=== PATIENT | female | born 1990 | race Caucasian/White ===

== ENCOUNTER 2024-09-01 21:22 | Inpatient (IN) | payer OTHER, SELFPAY ==
[2024-09-01] VITALS (9 sets, daily range): BP systolic 127–153; BP diastolic 85–95; PULSE 70–112; RESP 18; TEMP 37.3; O2SAT 76–100; BMI 30.7
[2024-09-01 21:57] LABS: Basophils Absolute Auto 0.1 K/mm3 (0.0-0.1); Basophils Percent Auto 0.4 % (0.2-1.2); Eosinophils Absolute Auto 0.3 K/mm3 (0-0.3); Eosinophils Percent Auto 2.8 % (0-4.4); Hematocrit 37.7 % (37.0-47.0); Hemoglobin 12.6 g/dL (12.0-15.0); Immature Granulocyte Absolute 0.25 K/mm3 (0.00-0.031); Immature Granulocyte Percent A 2.1 % (0-0.5); Lymphocytes Absolute Auto 1.74 K/mm3 (0.9-3.2); Lymphocytes Percent Auto 14.8 % (18.3-44.2); Mean Corpuscular HGB Conc 33.4 g/dl (32-36); Mean Corpuscular Hemoglobin 28.7 pg (26-34); Mean Corpuscular Volume 85.9 fl (80-100); Mean Platelet Volume 11.5 fl (7.4-10.4); Monocytes Absolute Auto 0.8 K/mm3 (0.1-0.6); Monocytes Percent Auto 6.6 % (2.6-8.5); Neutrophils Absolute Auto 8.6 K/mm3 (1.3-6.7); Neutrophils Percent Auto 73.3 % (45.5-73.1); Platelet Count Result 188 k/mm3 (150-375); Red Blood Count 4.39 M/mm3 (4.2-5.4); Red Cell Distribution Width 13.7 % (11.5-14.5); White Blood Count 11.7 K/mm3 (4.5-10.0)
--- NOTE | 2024-09-01 21:59 | LDADM ---
This patient, Jinny Salinas, was admitted to Labor/Delivery/Recovery 107 on 09/01/24 at 21:22. Plans for labor, pain management and were discussed with patient. Patient/family oriented to hospital policies and general routines including ID bracelet, bed and alarms, visiting hours, pain management, procedures, bathroom and other care routines, personal items, smoking policy, room service/diet and guest tray routines, infant security routines, and visiting hours. Patient/Family are encouraged to report perceived risks to care and to ask questions if they do not understand what they are told or what they should do. See [facility]BIX for further documentation.
[2024-09-01 22:47] LABS: HIV 1/2 Ab P24 Ag Result Negative (Negative)
[2024-09-01] MEDS: LACTATED RINGERS 1,000 ML 125 ML IV CONT ×2 (23:13→23:44)
--- NOTE | 2024-09-01 23:46 | WPDANESEPP ---
Anes - Eval Pre Procedure Procedure: Labor Epidural Date/Time: 09/01/24 23:46 Surgeon: Mark Preop Diagnosis: Labor Pain Pre Op Diagnosis: SROM Patient Data Age: 33 Gender: F Height: 1.65 m Weight: 83.63 kg Last Vital Signs Temp 37.3 C 09/01/24 22:29 Pulse 73 09/01/24 23:31 Resp 18 09/01/24 22:29 BP 140/88 09/01/24 23:31 Allergies Allergy/AdvReac Type Severity Reaction Status Date / Time No Known Allergies Allergy Verified 08/07/24 14:27 Home Medications Medication Instructions Recorded Confirmed Type escitalopram oxalate 5 mg tablet 5 mg PO DAILY 08/07/24 08/07/24 History (Lexapro) ferrous sulfate 325 mg (65 mg 325 mg PO DAILY 08/07/24 08/07/24 History iron) tablet pantoprazole 40 mg tablet,delayed 40 mg PO HS 08/07/24 08/07/24 History release vits no.126-ferrous fum 1 tablet PO DAILY 08/07/24 08/07/24 History 28 mg iron-folic acid 800 mcg tablet (Classic ) Laboratory Tests 09/01/24 21:52 WBC 11.7 H K/mm3 (4.5-10.0) RBC 4.39 M/mm3 (4.2-5.4) Hgb 12.6 g/dL (12.0-15.0) Hct 37.7 % (37.0-47.0) MCV 85.9 fl (80-100) MCH 28.7 pg (26-34) MCHC 33.4 g/dl (32-36) RDW 13.7 % (11.5-14.5) Plt Count 188 k/mm3 (150-375) MPV 11.5 H fl (7.4-10.4) Immature Gran % (Auto) 2.1 H % (0-0.5) Neut % (Auto) 73.3 H % (45.5-73.1) Lymph % (Auto) 14.8 L % (18.3-44.2) [place] % (Auto) 6.6 % (2.6-8.5) Eos % (Auto) 2.8 % (0-4.4) Baso % (Auto) 0.4 % (0.2-1.2) Lymph # (Auto) 1.74 K/mm3 (0.9-3.2) [place] # (Auto) 0.8 H K/mm3 (0.1-0.6) Eos # (Auto) 0.3 K/mm3 (0-0.3) Baso # (Auto) 0.1 K/mm3 (0.0-0.1) Abs Immat Gran (auto) 0.25 H K/mm3 (0.00-0.031) Absolute Neuts (auto) 8.6 H K/mm3 (1.3-6.7) Absolute Nucleated RBC 0.000 K/mm3 (0.0-0.012) Nucleated RBC % 0.0 % (0.0-0.2) RPR Pending HIV 1&2 Ab/P24 Ag 4thGn Negative (Negative) Blood Type B Positive Antibody Screen Negative : gestational age (, ELEAZAR 09/04/24) Patient hx anesthesia problems: none Family hx anesthesia problems: none Results Review: All pre-operative results and documents have been reviewed as part of the pre-operative evaluation. [facility] Family History Family History Father Hypertension Other Cancer Social History Social History Smoking status: Never smoker Second hand tobacco smoke exposure: No Substance use: never Do You Feel Safe in your Home?: Yes Lack of Transportation: No Lack of Food: Never True Current Housing: I Have Housing Concerned About Future Housing: No Difficulty Paying Gas/Electric Bills: No Difficulty Paying for Meds: No Currently Unemployed: No Education: Bachelor's Degree Difficulty w/ Childcare or Family Care: No Spiritual care concerns: No Exam Day of Procedure 09/01/24 23:46 Patient weight: normal Heart: regular rate and rhythm Lungs: normal air movement Airway: Mallampati scale class II Neurological: alert and oriented
[2024-09-02] VITALS (151 sets, daily range): BP systolic 105–145; BP diastolic 59–112; PULSE 30–198; RESP 18; TEMP 36.4–37.4; O2SAT 77–100
[2024-09-02] MEDS: LACTATED RINGERS 1,000 ML 125 ML IV CONT (01:31)
[2024-09-02] MEDS: hydrOXYzine HCL 25 MG TABLET PO (04:50)
--- NOTE | 2024-09-02 06:04 | WPDOBADMIT ---
Obstetrics - Admit Note Admission Note: record reviewed. Additions to the history and/or subsequent changes in the physical findings follow. 33 y/o G1 at 39 5/7 weeks who presented to L&D after a gush of fluid. SROM was confirmed and she was admitted. She received an epidural for pain control. Labor progressed without augmentation. GBS neg. AVSS NST reactive TOCO: contractions every 2-3 min ABD soft, nontender, gravid, vertex EXT nontender Cervix C/+2 A: IUP at term with SROM/labor P: Pushing. Anticipate .
--- NOTE | 2024-09-02 06:05 | PM.OBPRVD ---
OB - Vaginal Delivery Note Procedure Delivery date: 09/02/24 Events: Other (Labor at term) Induction method: None Delivery monitor: External FHT and External Uterine Route of delivery: Episiotomy description: None Laceration Description: Perineal - 2nd Degree and Vaginal Delivery repair: vicryl (3-0) Specimen: Yes (cord blood) Quantitative Blood Loss (ml): 450 Anesthesia type: Epidural Disposition: PACU Complications: None Narrative: 33 y/o G1 at 39 5/7 weeks gestation who presented to the hospital after a gush of fluid. SROM confirmed. uncomplicated. GBS neg. She received an epidural for pain control. Her labor progressed and her cervix dilated completely. She pushed with good effort and delivered the 's head to the perineum, followed by the body. The nose and mouth were bulb suctioned. After a delay, the cord was clamped and cut. The infant was handed off the field. Cord blood was collected. The placenta delivered spontaneously and was grossly normal in appearance. The usual 3 vessel cord was noted. A second degree midline perineal laceration was sustained, as was a right-sided vaginal laceration. This was reapproximated using 3 0 Vicryl in the usual layered fashion. Excellent hemostasis resulted as did excellent reapproximation of the normal anatomy. Needle and instrument counts were correct. The patient was taken to recovery room in stable condition. The went to the nursery in stable condition. I was present and scrubbed for the entire delivery. [place] Baby Date of : 09/02/24 Time of : 05:33 Gestational Age by Date: 39 gender: Female presentation: vertex position: Left Occiput Anterior Placenta delivery description: Spontaneous and Normal Configuration Cord Vessel Description: 3 Vessels and Delayed Cord Clamping
--- NOTE | 2024-09-02 06:09 | PM.OBDSVD ---
DS: Admitting Diagnosis Discharge Date 09/04/24 Admitting Diagnosis IUP at 39 5/7 weeks Labor DS: Discharge Diagnosis Discharge Diagnosis (1) (normal spontaneous vaginal delivery): Code(s): O80 - Encounter for full-term uncomplicated delivery Status: Acute OB - DS: Summary OB Procedures : None OB Procedures Intrapartum: Spontaneous Vag Delivery OB Procedures: : None Peripartum Data Laceration Description: Perineal - 2nd Degree and Vaginal Episiotomy description: None Time Spent with Patient Time attestation: Total time spent providing and/or coordinating discharge services: DS: Data Data Completed and Pending Labs on day of discharge: Labs from last 24 hours 09/01/24 21:52 WBC 11.7 H RBC 4.39 Hgb 12.6 Hct 37.7 MCV 85.9 MCH 28.7 MCHC 33.4 RDW 13.7 Plt Count 188 MPV 11.5 H Immature Gran % (Auto) 2.1 H Neut % (Auto) 73.3 H Lymph % (Auto) 14.8 L [place] % (Auto) 6.6 Eos % (Auto) 2.8 Baso % (Auto) 0.4 Lymph # (Auto) 1.74 [place] # (Auto) 0.8 H Eos # (Auto) 0.3 Baso # (Auto) 0.1 Abs Immat Gran (auto) 0.25 H Absolute Neuts (auto) 8.6 H Absolute Nucleated RBC 0.000 Nucleated RBC % 0.0 RPR Pending HIV 1&2 Ab/P24 Ag 4thGn Negative Blood Type B Positive Antibody Screen Negative Discharge Plan Discharge Attending physician on discharge: Ronnie Flores Discharging Clinician: Ronnie Flores Patient Disposition: Home, Self-Care Activity: pelvic rest Diet: regular Discharge Instructions: Call or return if temperature above 100.4? F, increased abdominal pain, increased vaginal bleeding or any new problems. Stand Alone Forms: General Discharge Information Follow-up/Referrals: Ronnie Flores MD [Physician] - 6 Weeks Discharge Medications: New ibuprofen 600 mg tablet 600 mg PO Q6H PRN (Reason: cramps) Qty: 30 0RF Continued pantoprazole 40 mg Tablet,Delayed Release (Dr/Ec) 40 mg PO HS ferrous sulfate 325 mg (65 mg iron) Tablet 325 mg PO DAILY escitalopram oxalate [Lexapro] 5 mg Tablet 5 mg PO DAILY Classic 28 mg iron- 800 mcg Tablet 1 tablet PO DAILY Date of admission: 09/01/24 21:22 Primary Care Provider: PHYSICIAN,DRAPERY WORKER Admitting Provider: Ronnie Flores Attending physician on admission: Ronnie Flores Condition: Stable
[2024-09-02] MEDS: OXYTOCIN 30 UNITS/NS 500 ML 30 UNITS/500 ML BAG 125 UNITS IV CONT (06:11)
[2024-09-02] MEDS: WITCH HAZEL 40 PADS 1 PAD TOPICAL (08:31)
[2024-09-02] MEDS: BENZOCAINE 20% AER SPR (*SP) 56 GM CAN 1 SPRAY TOPICAL (08:31)
--- NOTE | 2024-09-02 08:35 | PC.NURSE ---
Patient transferred to post room #288 via wheelchair. Support person present. Oriented to unit, room, information board, rooming in, admission packet and security measures. Patient verbalizes understanding.
[2024-09-02] MEDS: ESCITALOPRAM OXALATE 5 MG TABLET PO (09:05)
[2024-09-02 09:13] LABS: Rapid Plasma Reagin Non-Reactive (NonReactive)
[2024-09-02] MEDS: IBUPROFEN SUSPENSION 200 MG/10 ML UDC 600 MG PO ×3 (09:29→21:31)
--- NOTE | 2024-09-02 16:07 | PC.NURSE ---
1445. Consulted with patient to assess needs related to . Discussed with mother her successes, concerns and any questions she has. Mom reports that it is her desire to exclusively breastfeed if she is able. Reviewed the importance of s2s and watching for infants early feeding cues. Encouraged mom to call again when is showing feeding cues so we can check a latch. Reviewed blue feeding sheet, and resources in mom and baby guide. Mom plans to rest and will call when infant is due to feed next or with next feeding cue. 1600. Mom called to have check a latch. We reviewed working with the , supporting breast, protecting her nipples with an optimal deep latch, good positioning, and good hand washing. Encouraged understanding the benefits of skin to skin, responding to feeding cues, frequencies of feeding 10-12 times in 24 hours (approximately 2-3 hours), duration of feedings, milk production, intake/output feeding sheet and signs of adequate intake encouraging swallowing at the breast. Reviewed positioning and alignment, supporting breast, off-centered (asymmetrical latch) and leading with the chin with big, open, wide gape. latched optimally to the [left] breast in [cross cradle] position. Education given to the mother of how to visualize the suckling (with good rocking jaw motion) swallows (dropping of the lower jaw) and how to listen for drinking at the breast (the ka sound). The infant was [able] to maintain latch without discomfort to mother. Nipple care reviewed with optimal latch, good positioning and using clean hands when touching her breast. Resources used to facilitate learning were used from the [visual educational handouts on feeding cues and latching]. Mother voiced understanding of the education shared, to call for assistance if the does not latch or if there is discomfort with . Reported to the Primary RN.
[2024-09-03] MEDS: IBUPROFEN SUSPENSION 200 MG/10 ML UDC 600 MG PO ×3 (03:09→16:49)
[2024-09-03 05:08] VITALS: BP 121/79; PULSE 78; RESP 16; TEMP 36.8; O2SAT 100
[2024-09-03 05:15] LABS: Hematocrit 28.7 % (37.0-47.0); Hemoglobin 9.5 g/dL (12.0-15.0)
[2024-09-03 07:50] VITALS: BP 125/80; PULSE 75; RESP 18; TEMP 36.6; O2SAT 99
[2024-09-03] MEDS: DOCUSATE SODIUM 100 MG CAPSULE PO ×2 (08:03→16:49)
[2024-09-03] MEDS: POLYSACCHARIDE IRON COMPLEX 150 MG CAPSULE PO ×2 (08:03→16:49)
[2024-09-03] MEDS: ESCITALOPRAM OXALATE 5 MG TABLET PO (08:04)
[2024-09-03] MEDS: WITCH HAZEL 40 PADS 1 PAD TOPICAL (08:05)
[2024-09-03] MEDS: BENZOCAINE 20% AER SPR (*SP) 56 GM CAN 1 SPRAY TOPICAL (08:05)
--- NOTE | 2024-09-03 08:15 | PC.NURSE ---
Introductions were made, then consulted with patient to assess needs related to . Discussed with mother her?plans to feed?her and the?experience so far. Resources provided for inpatient and outpatient services with the feeding sheet, mom/baby guide and name written on the communication board. Mother voiced understanding of information and will call if there is a request for assistance. Reported to the Primary RN.
--- NOTE | 2024-09-03 10:21 | WPDANLDPN2 ---
Anes-Prog Note L&D Date/Time: 09/03/24 10:21 Comfortable throughout: labor and delivery Neuraxial method: epidural Epidural/Spinal procedure site: clean & non-tender Neuro status: Neuro function grossly intact. Cardiovascular status: normal Respiratory status: normal Airway patency: baseline Mental status: baseline Post-Op hydration status: normal Vital Signs: Last Vital Signs Temp 36.6 C 09/03/24 07:50 Pulse 75 09/03/24 07:50 Resp 18 09/03/24 07:50 BP 125/80 09/03/24 07:50 Pulse Ox 99 09/03/24 07:50 O2 Del Method Room Air 09/02/24 08:35 Pain score (VAS): 0/10 Post-procedural complaints: none Patient feedback: Patient satisfied with anesthetic care.
--- NOTE | 2024-09-03 12:46 | PM.OBPNVD ---
OB - PN: Subj Subjective Date/time seen: 09/03/24 12:46 Narrative: Pain OK. OB - PN: Obj Data Labs 09/03/24 05:03 Labs: Laboratory Results - last 24 hr 09/03/24 05:03 Hgb 9.5 L D Hct 28.7 L OB - PN A/P Plan Comments: A: PPD#1, doing well. P: Routine care. Exam Psych: Other: AVSS ABD soft, nontender, fundus firm EXT nontender
[2024-09-03 20:15] VITALS: BP 140/83; PULSE 90; RESP 18; TEMP 37.2; O2SAT 100
[2024-09-04] MEDS: IBUPROFEN SUSPENSION 200 MG/10 ML UDC 600 MG PO (03:53)
--- NOTE | 2024-09-04 08:23 | PM.OBPNVD ---
OB - PN: Subj Subjective Date/time seen: 09/04/24 08:23 Narrative: Pain OK. Would like to go home. OB - PN: Obj Data Labs 09/03/24 05:03 OB - PN A/P Plan day: 2 Comments: A: PPD#2, doing well. P: Home to f/u 6 weeks. Exam Psych: Other: AVSS ABD soft, nontender, fundus firm EXT nontender
[2024-09-04 08:38] VITALS: BP 130/85; PULSE 70; RESP 14; TEMP 36.8; O2SAT 98
[2024-09-04] MEDS: DOCUSATE SODIUM 100 MG CAPSULE PO (09:00)
[2024-09-04] MEDS: POLYSACCHARIDE IRON COMPLEX 150 MG CAPSULE PO (09:00)
[2024-09-04] MEDS: ESCITALOPRAM OXALATE 5 MG TABLET PO (09:01)
--- NOTE | 2024-09-04 10:00 | PC.NURSE ---
Consulted with patient to assess needs related to . Discussed with mother her successes, concerns and any questions she has. Infant is at 9% weight loss and they began supplementing with formula in the night. Encouraged understanding the benefits of skin to skin, responding to feeding cues, frequencies of feeding 8-12 times in 24 hours (approximately 2-3 hours), duration of feedings, milk production, intake/output feeding sheet and signs of adequate intake encouraging swallowing at the breast. latched optimally to the [left] breast in [cradle] position. Education given to the mother of how to visualize the suckling (with good rocking jaw motion) swallows (dropping of the lower jaw) and how to listen for drinking at the breast (the ka sound). The infant was [able] to maintain latch without discomfort to mother. We initiated pumping with the patient's Spectra pump. We measured her nipples at a 19mm and recommended she use the 24mm flanges that come with her pump. We alos reviewed the settings and recommendations according to her pump manual. Instructions given on cleaning, care, usage, that there should be no pain, pumping schedule for milk production, collection, and storage of human milk. Nipple care reviewed with optimal latch, drying breastmilk on the nipple after feeding and use of silverettes. Mother voiced understanding of the education shared, to call for assistance if the infant does not latch or if there is discomfort with . Reported to the Primary RN.
--- NOTE | 2024-09-04 10:34 | PC.NURSE ---
Patient viewed the discharge video Mother & Baby Care, The First Two Weeks . Patient was given the opportunity and encouraged to ask questions. Patient verbalized understanding of information shared and has been given the mother/baby guide for home reference.
[2024-09-05 14:03] VITALS: BP 130/78; PULSE 67; RESP 18; TEMP 36.6; O2SAT 99
== END 2024-09-04 14:20 | disposition home or self-care (01) | DRG 807 ==
LOC: ANHLDR 09-02 06:10 → ANHOB2 09-02 08:41
PROVIDERS: Admitting Provider Obstetrics & Gynecology; Visit Provider Obstetrics & Gynecology
DX: O70.1 Second degree perineal laceration during delivery (principal); Z37.0 Single live birth; Z3A.39 39 weeks gestation of pregnancy
CPT/HCPCS: 36415; 85014; 85018; 85025; 86592; 86703; 86850; 86900; 86901; A9270; G0432; J2590; J2795; J7120

== ENCOUNTER 2024-10-25 10:56 | Outpatient (RCR) | payer OTHER, SELFPAY | END 2025-01-23 23:59 | disposition home or self-care (01) | LOC: ANHOBOP 10:56 | PROVIDERS: Visit Provider Pediatrics | DX: Z39.1 Encounter for care and examination of lactating mother (principal) | CPT/HCPCS: 99212; G0463 ==